=== PATIENT | male | born 1965 | race Caucasian/White ===

== ENCOUNTER 2019-06-01 13:59 | Outpatient (CLI) | payer MEDICARE, MEDICAID, SELFPAY ==
--- NOTE | 2019-06-01 14:15 | XR_ITS ---
WS: [id number] HIP WITH PELVIS RIGHT TECHNIQUE: 3 views of the right hip with pelvis CLINICAL INFORMATION: RIGHT HIP PAIN, LOW BACK PAIN, OSTEOARTHRITIS COMPARISON: None. FINDINGS: Advanced degenerative arthritis right hip with joint space narrowing and subchondral cystic change. B one-on-bone articulation superolateral joint compartment. Normal pubic rami. No acute fractures. XR/XR hip RT 2-3V wo/w pel* [id number] IMPRESSION: Advanced degenerative arthritis as described above
--- NOTE | 2019-06-01 14:15 | XR_ITS ---
WS: [id number] LUMBAR SPINE TECHNIQUE: 3 views of the lumbar spine CLINICAL INFORMATION: RIGHT HIP PAIN, LOW BACK PAIN, OSTEOARTHRITIS COMPARISON: None. FINDINGS: Five sbn-[id number]-[id number] lumbar vertebral bodies. Disc space heights are well preserved. No compression f ractures. No spondylolisthesis. Mild facet arthropathy L5-S1. Visualized sacroiliac joints are normal . Normal visualized soft tissues. Partially visualized bowel gas pattern is normal. XR/XR lumbar spine 2-3V* [id number] IMPRESSION: 1. Mild spondylitic changes. No acute appearing compression fractures. 2. Disc space size vertebral body heights relatively well-preserved. 3. Mild facet arthropathy L5-S1.
== END 2019-06-01 14:00 | disposition home or self-care (01) ==
LOC: RADWPI 14:07
PROVIDERS: Family Provider Nurse Practitioner Family; PCP Nurse Practitioner Family; Visit Provider Nurse Practitioner Family
DX: M47.817 Spondylosis without myelopathy or radiculopathy, lumbosacral region (principal); M16.11 Unilateral primary osteoarthritis, right hip
CPT/HCPCS: 72100; 73502

== ENCOUNTER → 2019-09-28 11:23 | Outpatient (BNVA) | payer MEDICARE, MEDICAID, SELFPAY | PROVIDERS: Family Provider Nurse Practitioner Family; PCP Nurse Practitioner Family; Visit Provider Specialist | DX: M25.551 Pain in right hip (principal) | CPT/HCPCS: 73502 ==

== ENCOUNTER 2023-02-19 09:57 | Emergency (ER) | payer MEDICARE, SELFPAY ==
[2023-02-19 10:06] VITALS: BP 138/90; PULSE 76; RESP 16; TEMP 36.7; O2SAT 93; BMI 33.9
--- NOTE | 2023-02-19 10:17 | CT_ITS ---
WS: [id number] CT HEAD TECHNIQUE: Noncontrast CT of the head obtained from the skullbase to the vertex. CLINICAL INFORMATION: fall trauma positive loc COMPARISON: None. DLP: 1051.[address] scans at [facility] use at least one of these dose optimization techniques: automated e xposure control; mA and/or kV adjustment per patient size (includes targeted exams where dose is matc hed to clinical indication); or iterative reconstruction. FINDINGS: No evidence of intracranial hemorrhage or mass effect. Ventricular system and basal cisterns are faria nt. Mild small vessel changes with mild parenchymal volume loss. No extra-axial fluid collections. No evidence of mass or mass effect. Intracranial vascular calcification. Mastoid air cells are well aerated. Partially evaluated fractures involving the LEFT zygoma and sphen oid wing extending to the lateral orbit. Fluid or blood products in the LEFT maxillary sinus. Partial visualized comminuted fracture involving the LEFT maxillary sinus. Mild mucosal thickening in the et hmoid air cells and frontal sinus. IMPRESSION: 1. No evidence of intracranial hemorrhage or mass effect. 2. Partially visualized left-sided facial fractures and maxillary sinus fractures with fluid or bloo d products in the LEFT maxillary sinus. Recommend further evaluation with face CT. Notified Constantino Rosas DO at 02/19/2023 10:59 AM.
--- NOTE | 2023-02-19 10:17 | XR_ITS ---
WS: [id number] Exam: XR shoulder LT min 2V* [id number] Date/Time of Exam: 02/19/2023 10:20 AM Reason For Exam: fall pain There is a comminuted fracture of the surgical neck and head of the humerus. No significant angulatio n or displacement is noted. The remainder of the LEFT shoulder is intact. Minimal DJD at the AC joint . Normal soft tissues. IMPRESSION: 1. Comminuted nondisplaced fracture of the surgical neck and head of the humerus.
--- NOTE | 2023-02-19 10:20 | ED_ITS ---
HPI - Fall General: Chief Complaint: Fall Stated Complaint: fall Time Seen by Provider: 02/19/23 10:02 History of Present Illness: Patient presents to the ER with complaints of a fall on gravel last night and he hit his left side of his head on the bumper and his right shoulder on the ground. Patient does state he was a positive loss of consciousness for 5 to 10 minutes. Patient has left shoulder pain to the point that he cannot move it and also left-sided facial pain. Patient is not currently on any anticoagulation. Patient has no other complaints at this time. Review of Systems General: Reports: 10 or more systems reviewed and unremarkable except in HPI and below PFSH ED PFSH: Medical History Asthma COPD (chronic obstructive pulmonary disease) Hx of essential hypertension Hx of thyroid cancer Osteoarthritis Surgical History History of thyroid surgery Family History Other Hypertension Denies family history of Diabetes Social History Smoking and tobacco/nicotine status: current every day tobacco/nicotine user cigarettes Packs smoked per day: 1 Substance/Drug Use: never Physical Exam Const: COMMON NORMALS: no acute distress, average body habitus, patient oriented x3, no limitations, healthy appearing, alert and well nourished HENMT: COMMON NORMALS: normocephalic, atraumatic, hearing grossly normal bilaterally, external ears normal, Normal external nose present, moist oral mucous membranes and oropharynx normal HEAD & SCALP: normocephalic and atraumatic NOSE: Normal external nose present EXTERNAL EAR: Yes external ears normal Eye: COMMON NORMALS: Equal, round and reactive pupils present, EOMs intact bilaterally, conjunctivae normal and no scleral icterus CONJUNCTIVA: Yes conjunctivae normal PUPIL: Yes Equal, round and reactive pupils present Neck/C-Spine: COMMON NORMALS: full ROM, no lymphadenopathy, supple, no meningeal signs, no JVD and Thyroid normal THYROID: Thyroid normal Chest: COMMONS NORMALS: normal inspection of the chest and normal palpation of entire chest wall Resp: COMMON NORMALS: normal respiratory effort, No retractions, No use of accessory muscles and clear to auscultation bilaterally AUSCULTATION: clear to auscultation bilaterally Cardio: COMMON NORMALS: no JVD, regular rate, regular rhythm, S1 normal heart sound present, S2 normal heart sound present, No gallops present (Cardio), No clicks present (Cardio), No murmurs present (Cardio) and No rub (Cardio) RATE: regular rate RHYTHM: regular rhythm HEART SOUNDS: S1 normal heart sound present and S2 normal heart sound present GI: COMMON NORMALS: Normal to inspection, nondistended, normoactive bowel sounds present, Soft to palpation, non-tender, No hepatosplenomegaly present and no masses PALPATION: Yes Soft to palpation and Yes No hepatosplenomegaly present Extremity: NARRATIVE EXTREMITY EXAM: Pain with palpation over entire left shoulder girdle area. Limited range of motion secondary to pain. Neuro: COMMON NORMALS: patient oriented x3 SENSORIUM/ORIENTATION: Yes alert MENINGEAL SIGNS: Yes no meningeal signs Course Vital Signs: Vital signs: Vital Signs Temperature 98.0 F 02/19/23 10:06 Pulse Rate 76 02/19/23 10:06 Respiratory Rate 18 02/19/23 10:47 Blood Pressure 138/90 02/19/23 10:06 Pulse Oximetry 93 02/19/23 10:06 MDM - Fall Medical Decision Making Patient presented to the ER after fall with facial pain in the left shoulder pain. head CT was performed which was negative for hemorrhage but did show multiple facial fractures., Facial CT again showed multiple facial fractures, x-ray showed a humeral neck fracture. Dr. Munoz was consulted for the multiple facial fractures and he suggested referring to ophthalmology within [address] Patel was consulted for the shoulder fracture and he suggested pain control shoulder immobilizer and follow-up in the office within 1one 1 week. Patient was given [place] 10 mg here in the ER was will be placed in a shoulder immobilizer and referred to both Dr. Munoz and Dr. Patel on an outpatient basis. Patient be discharged to follow-up with his PCP as needed. Differential Diagnosis Likely concussion with loss of consciousness; Unlikely syncope, dislocation of shoulder region, fracture of wrist, compression fracture or concussion without loss of consciousness Medical Records I reviewed the patient's medical records. Lab Data I reviewed the patient's lab results. All radiology interpretation(s) finalized by discharge Discharge Plan Discharge Patient Disposition: Home Clinical Impression: Closed fracture of neck of left humerus Qualifiers: Encounter type: initial encounter Qualified Code(s): S42.212A - Unspecified displaced fracture of surgical neck of left humerus, initial encounter for closed fracture Multiple closed facial bone fractures Qualifiers: Encounter type: initial encounter Qualified Code(s): S02.92XA - Unspecified fracture of facial bones, initial encounter for closed fracture Fall Qualifiers: Encounter type: initial encounter Qualified Code(s): W19.XXXA - Unspecified fall, initial encounter Condition: Stable Prescriptions: New hydrocodone-acetaminophen 5-325 mg tablet 1 tab PO Q8H PRN (Reason: pain) Qty: 14 0RF No Action albuterol sulfate 2.5 mg /3 mL (0.083 %) solution for nebulization 2.5 mg INHALATION Q6H amlodipine 10 mg tablet 10 mg PO DAILY atenolol 50 mg tablet 50 mg PO DAILY levothyroxine 200 mcg capsule 200 mcg PO DAILY meloxicam 15 mg tablet 15 mg PO DAILY budesonide-formoterol [Symbicort] 160-4.5 mcg/actuation HFA aerosol inhaler 2 puff INHALATION BID atorvastatin 10 mg tablet 10 mg PO QPM omeprazole 20 mg capsule,delayed release(DR/EC) 20 mg PO BID Discharge Orders: Discharge ED (Routine); Ordered 02/19/23 Ordered By: Constantino Rosas Referrals: Elizabeth Alonzo FNP [Primary Care Provider] - 1 week Patient Instructions: Arm Fracture in Adults (DC), Facial Fracture (DC), Opioid Safety, Pain Management Activity Restrictions/Additional Instructions: please wear your sling at all times until seen by orthopedics, you have been referred to case management for referral to orthopedics and ophthalmology. They will be calling you within the next 1-2 business days to set up these appointments. Please take your pain medicine as prescribed as needed. Please follow-up with your family practice physician within the next 7 to 10 days for further evaluation and treatment. Coding Level of Care Code ED Development Technician for Karla Tam
[2023-02-19 10:47] VITALS: RESP 18
--- NOTE | 2023-02-19 10:58 | CT_ITS ---
WS: [id number] CT FACIAL BONES TECHNIQUE: Noncontrast facial bones with coronal and sagittal reformatted images. CLINICAL INFORMATION: fall left side face trauma, abnormal head ct COMPARISON: None. DLP: 687.[address] scans at [facility] use at least one of these dose optimization techniques: automated e xposure control; mA and/or kV adjustment per patient size (includes targeted exams where dose is matc hed to clinical indication); or iterative reconstruction. FINDINGS: Soft tissue edema involving the LEFT facial soft tissues. Blood products within the LEFT maxillary si nus. Comminuted fracture involving all clark of the LEFT maxillary sinus with some depression and irr egularity. Depressed fractures involving the LEFT zygoma. Fracture involving the LEFT greater sphenoi d wing extending to the lateral orbit with depression and impingement on the lateral rectus. Comminut ed fracture fragments extend into the orbital apex. Comminuted fracture involving the inferior LEFT orbit with slight tethering of intraorbital fat. No e ntrapment of the inferior rectus. Slightly depressed fractures involving the LEFT lamina papyracea. F luid in the LEFT ethmoid air cells. Normal pterygoid plates. Small nondisplaced fractures involving t he nasal bones age-indeterminate. Chronic appearing nasal septal deviation. No evidence of mandibular fracture or dislocation. IMPRESSION: 1. Comminuted fractures involving all clark of the LEFT maxillary sinus extending to the adjacent ma xilla. 2. Depressed fractures involving the LEFT zygoma and LEFT sphenoid wing extending to the lateral orb it. Fracture fragments impinge on the lateral rectus and extend to the orbital apex. 3. Comminuted fracture involving the inferior orbit with tethering of intraorbital fat. No entrapmen t of the inferior rectus. 4. Minimally depressed fractures involving the LEFT lamina papyracea. 5. Fluid and blood products in the LEFT maxillary sinus. Notified Constantino Rosas DO at 02/19/2023 12:01 PM.
[2023-02-19] MEDS: HYDROcodone-acetaminophen 10-325 mg Tablet 1 TAB PO (11:57)
--- NOTE | 2023-02-23 07:45 | DCPLANNER ---
Message sent to Ortho for follow up on the LT humeral neck fx.
--- NOTE | 2023-02-23 08:52 | DCPLANNER ---
Faxed a referral over to [facility] - fax [phone], ph [phone]
== END 2023-02-19 12:55 | disposition home or self-care (01) ==
PROVIDERS: Emergency Provider Emergency Medicine; PCP Nurse Practitioner Family
DX: S42.212A Unspecified displaced fracture of surgical neck of left humerus, initial encounter for closed fracture (principal); S02.92XA Unspecified fracture of facial bones, initial encounter for closed fracture; J44.9 Chronic obstructive pulmonary disease, unspecified; I10 Essential (primary) hypertension; Z85.850 Personal history of malignant neoplasm of thyroid; F17.210 Nicotine dependence, cigarettes, uncomplicated; W18.39XA Other fall on same level, initial encounter
CPT/HCPCS: 70450; 70486; 73030; 99284

== ENCOUNTER → 2023-02-24 13:30 | Outpatient (BNVA) | payer MEDICARE, MEDICAID, SELFPAY | PROVIDERS: PCP Nurse Practitioner Family; Referring Provider Emergency Medicine; Visit Provider Physician Assistant | DX: S42.232A 3-part fracture of surgical neck of left humerus, initial encounter for closed fracture (principal); X58.XXXA Exposure to other specified factors, initial encounter | CPT/HCPCS: 73030; 73090; 99203 ==

== ENCOUNTER → 2023-03-12 08:07 | Outpatient (BNVA) | payer MEDICARE, MEDICAID, SELFPAY | PROVIDERS: PCP Nurse Practitioner Family; Visit Provider Orthopaedic Surgery | DX: S42.292D Other displaced fracture of upper end of left humerus, subsequent encounter for fracture with routine healing; X58.XXXD Exposure to other specified factors, subsequent encounter | CPT/HCPCS: 73030; 99213 ==

== ENCOUNTER → 2023-04-09 10:19 | Outpatient (BNVA) | payer MEDICARE, SELFPAY | PROVIDERS: PCP Nurse Practitioner Family; Visit Provider Physician Assistant | DX: S42.292D Other displaced fracture of upper end of left humerus, subsequent encounter for fracture with routine healing; X58.XXXD Exposure to other specified factors, subsequent encounter; F17.210 Nicotine dependence, cigarettes, uncomplicated | CPT/HCPCS: 73060; 99213 ==

== ENCOUNTER → 2023-05-19 14:46 | Outpatient (BNVA) | payer MEDICARE, SELFPAY | PROVIDERS: PCP Nurse Practitioner Family; Visit Provider Orthopaedic Surgery | DX: S42.292D Other displaced fracture of upper end of left humerus, subsequent encounter for fracture with routine healing (principal); X58.XXXD Exposure to other specified factors, subsequent encounter | CPT/HCPCS: 73060; 99213 ==

== ENCOUNTER → 2023-07-14 10:41 | Outpatient (BNVA) | payer MEDICARE, SELFPAY | PROVIDERS: PCP Nurse Practitioner Family; Visit Provider Orthopaedic Surgery | DX: S42.292D Other displaced fracture of upper end of left humerus, subsequent encounter for fracture with routine healing (principal); X58.XXXD Exposure to other specified factors, subsequent encounter | CPT/HCPCS: 73060; 99213 ==